=== PATIENT | male | born 1975 | race Caucasian/White ===

== ENCOUNTER → 2018-02-04 07:57 | Outpatient (CLI) | payer OTHER, SELFPAY ==
--- NOTE | 2018-02-04 08:01 | ECHOD_ITS ---
Reason For Study: [email or web address].FLUTTER Procedure This was a 2D Doppler, Color Flow transthoracic echocardiogram. The exam was of adequate technical quality. Exam performed in department. Left Ventricle Normal LV size. Mild global left ventricular systolic dysfunction. The estimated ejection fraction is 45 %. Normal diastology for age. Right Ventricle Normal RV size. Normal systolic function. Atria Normal left atrium. Normal right atrium. No doppler evidence for ASD. Mitral Valve There is no mitral annular calcification. Normal mitral valve. Trivial mitral valve insufficiency. Tricuspid Valve Normal tricuspid valve. Trivial tricuspid valve insufficiency. Right ventricular systolic pressure estimated to be 25 mmHg. Aortic Valve Trisinus/trileaflet aortic valve. Mild diffuse aortic valve thickening. Mild focal aortic valve calcification. Aortic sclerosis, no stenosis. Pulmonic Valve The pulmonic valve is not well visualized. Great Vessels Normal sized aortic root. Pericardium/Pleural No pericardial effusion. MMode/2D Measurements & Calculations LVIDd: 5.0 cm IVSd: 0.95 cm Ao root diam: 3.0 cm LVIDs: 3.4 cm LVPWd: 0.90 cm LA dimension: 3.2 cm RVDd: 3.3 cm FS: 31.1 % LAV(MOD-bp): 37.0 ml LA A4 area: 15.0 cm2 RA A4 area: 16.0 cm2 LAV(MOD-bp) Indexed: 17.3 ml/m2 LAV(MOD-sp2): 36.6 ml LAV(MOD-sp4): 38.0 ml Doppler Measurements & Calculations MV E max rd: 56.5 cm/sec Lat Peak E' Rd: 13.4 cm/sec Med Peak E' Rd: 13.6 cm/sec MV A max rd: 42.9 cm/sec E/E' lat: 4.2 E/E' med: 4.1 MV E/A: 1.3 Ao V2 max: 110.5 cm/sec LV V1 max: 92.8 cm/sec PA V2 max: 99.2 cm/sec Ao max P.9 mmHg LV V1 max P.[address] max rd: 235.2 cm/sec TR max P.3 mmHg Interpretation Summary Mild global left ventricular systolic dysfunction. The estimated ejection fraction is 45 %. Trivial mitral valve insufficiency. Trivial tricuspid valve insufficiency. Aortic sclerosis, no stenosis. Right ventricular systolic pressure estimated to be 25 mmHg. Normal diastology for age. Ordering Physician: Vince Shelton Referring Physician: Edilberto Beatty Performed By: Katina Hudson, OMARI, RVT
== END ==
PROVIDERS: Family Provider Physician Assistant; PCP Physician Assistant; Visit Provider Internal Medicine Cardiovascular Disease
DX: I48.0 Paroxysmal atrial fibrillation (principal); I42.8 Other cardiomyopathies
CPT/HCPCS: 93306

== ENCOUNTER → 2019-09-08 08:52 | Outpatient (CLI) | payer OTHER, SELFPAY ==
[2019-08-10 10:25] VITALS: BMI 25.3
--- NOTE | 2019-09-08 08:53 | ECHOD_ITS ---
Reason For Study: AFIB Procedure This was a 2D Doppler, Color Flow transthoracic echocardiogram. The exam was of adequate technical quality. Exam performed in department. Left Ventricle Normal LV size. Left ventricular systolic function is lower limits of normal. The estimated ejection fraction is 50 %. No evidence for diastolic dysfunction. No regional wall motion abnormalities noted. Right Ventricle Normal RV size. Normal systolic function. Atria Normal left atrium. Normal right atrium. No doppler evidence for ASD. Mitral Valve There is no mitral annular calcification. Mild diffuse mitral valve thickening. Trivial mitral valve insufficiency. Tricuspid Valve Normal tricuspid valve. Trivial tricuspid valve insufficiency. Right ventricular systolic pressure estimated to be 25 mmHg. Aortic Valve Trisinus/trileaflet aortic valve. Mild diffuse aortic valve thickening. Pulmonic Valve The pulmonic valve is not well visualized. Great Vessels Normal sized aortic root. Pericardium/Pleural No pericardial effusion. MMode/2D Measurements & Calculations LVIDd: 5.0 cm IVSd: 0.90 cm Ao root diam: 2.6 cm LVIDs: 3.7 cm LVPWd: 0.88 cm RVDd: 3.5 cm FS: 26.4 % LAV(MOD-bp): 46.5 ml LA A4 area: 17.4 cm2 LA dimension(2D): 3.3 cm LAV(MOD-bp) Indexed: 21.9 ml/m2 LAV(MOD-sp2): 41.2 ml LAV(MOD-sp4): 52.0 ml RA A4 area: 15.8 cm2 Time Measurements MV dec time: 0.37 sec Doppler Measurements & Calculations MV E max franco: 61.2 cm/sec Ao V2 max: 110.0 cm/sec LV V1 max: 86.2 cm/sec MV A max franco: 56.7 cm/sec Ao max P.8 mmHg LV V1 max P.0 mmHg MV E/A: 1.1 PA V2 max: 99.8 cm/sec TR max franco: 232.6 cm/sec TR max P.7 mmHg Interpretation Summary Left ventricular systolic function is lower limits of normal. The estimated ejection fraction is 50 %. Mild diffuse mitral valve thickening. Trivial mitral valve insufficiency. Trivial tricuspid valve insufficiency. Mild diffuse aortic valve thickening. Right ventricular systolic pressure estimated to be 25 mmHg. No evidence for diastolic dysfunction. Ordering Physician: Vince Shelton Referring Physician: REGINE NAYAK Performed By: Vandana Patton, SANDICS, RVT
== END ==
PROVIDERS: PCP Physician Assistant; Referring Provider Internal Medicine Cardiovascular Disease; Visit Provider Internal Medicine Cardiovascular Disease
DX: I42.8 Other cardiomyopathies (principal); I48.0 Paroxysmal atrial fibrillation; R00.2 Palpitations
CPT/HCPCS: 93306

== ENCOUNTER → 2021-07-04 09:56 | Outpatient (CLI) | payer OTHER, SELFPAY ==
--- NOTE | 2021-07-04 10:01 | ECHOD_ITS ---
Reason For Study: CARDIOMYOPATHY Procedure This was a 2D Doppler, Color Flow transthoracic echocardiogram. The exam was of adequate technical quality. Exam performed in department. Left Ventricle Normal LV size. Left ventricular systolic function is lower limits of normal. The estimated ejection fraction is 50 %. No evidence for diastolic dysfunction. No regional wall motion abnormalities noted. Right Ventricle Normal RV size. Normal systolic function. Atria Normal left atrium. Normal right atrium. No doppler evidence for ASD. Mitral Valve There is no mitral annular calcification. Anterior leaflet diffuse mitral valve thickening. Trivial mitral valve insufficiency. Tricuspid Valve Normal tricuspid valve. Trivial tricuspid valve insufficiency. Right ventricular systolic pressure estimated to be 27 mmHg. Aortic Valve Trisinus/trileaflet aortic valve. Mild diffuse aortic valve thickening. Trivial aortic valve insufficiency. Pulmonic Valve The pulmonic valve is not well visualized. Great Vessels Normal sized aortic root. Pericardium/Pleural No pericardial effusion. MMode/2D Measurements & Calculations LVIDd: 5.5 cm IVSd: 0.72 cm Ao root diam: 2.6 cm LVIDs: 3.7 cm LVPWd: 0.74 cm RVDd: 3.6 cm FS: 33.0 % LAV(MOD-bp): 51.9 ml LVAd ap4: 32.2 cm2 LVAd ap2: 30.5 cm2 LAV(MOD-bp) Indexed: 23.6 ml/m2 LVLd ap4: 8.7 cm LVLd ap2: 9.0 cm LAV(MOD-sp2): 51.2 ml EDV(MOD-sp4): 102.0 ml EDV(MOD-sp2): 93.0 ml LAV(MOD-sp4): 52.7 ml EDV(sp4-el): 101.3 ml EDV(sp2-el): 88.0 ml LVAs ap4: 22.0 cm2 LVAs ap2: 20.4 cm2 LVLs ap4: 7.3 cm LVLs ap2: 7.6 cm ESV(MOD-sp4): 56.4 ml ESV(MOD-sp2): 46.9 ml ESV(sp4-el): 56.5 ml ESV(sp2-el): 46.3 ml EF(MOD-sp4): 44.7 % EF(MOD-sp2): 49.6 % EF(sp4-el): 44.3 % SV(MOD-sp4): 45.6 ml SV(MOD-sp2): 46.1 ml SV(sp4-el): 44.8 ml LA dimension(2D): 3.4 cm LA A4 area: 18.4 cm2 RA A4 area: 14.7 cm2 Doppler Measurements & Calculations MV E max rd: 70.6 cm/sec Lat Peak E' Rd: 10.7 cm/sec Med Peak E' Rd: 8.6 cm/sec MV A max rd: 56.7 cm/sec E/E' lat: 6.6 E/E' med: 8.2 MV E/A: 1.2 Ao V2 max: 114.4 cm/sec LV V1 max: 92.6 cm/sec PA V2 max: 111.5 cm/sec Ao max P.2 mmHg LV V1 max P.[address] max rd: 243.7 cm/sec TR max P.8 mmHg ECHO/Echo Complete Interpretation Summary Left ventricular systolic function is lower limits of normal. The estimated ejection fraction is 50 %. Anterior leaflet diffuse mitral valve thickening. Trivial mitral valve insufficiency. Trivial tricuspid valve insufficiency. Mild diffuse aortic valve thickening. Trivial aortic valve insufficiency. Right ventricular systolic pressure estimated to be 27 mmHg. No evidence for diastolic dysfunction. Ordering Physician: Vince Shelton Referring Physician: REGINE NAYAK Performed By: Vandana Patton, OMARI, RVT
== END ==
PROVIDERS: PCP Physician Assistant; Referring Provider Internal Medicine Cardiovascular Disease; Visit Provider Internal Medicine Cardiovascular Disease
DX: R00.2 Palpitations (principal); I43 Cardiomyopathy in diseases classified elsewhere; I48.0 Paroxysmal atrial fibrillation
CPT/HCPCS: 93306

== ENCOUNTER 2021-08-29 09:18 | Outpatient (CLI) | payer OTHER, SELFPAY ==
--- NOTE | 2021-08-29 09:30 | RAD_ITS ---
STUDY: X-RAY CHEST REASON FOR EXAM: Male, 45 years old. SOB, orthopnea TECHNIQUE: PA and 2 lateral views of the chest. COMPARISON: 12/30/2011 FINDINGS: The lungs are clear and expanded. There is no demonstrated pleural abnormality. Normal size heart. Normal mediastinum and vikki. Normal visualized pulmonary arteries. Normal visualized aortic arch and descending thoracic aorta. Normal visualized thoracic spine. Normal visualized ribs, clavicles, and shoulders. There is no demonstrated abnormality of the visualized soft tissue structures of the upper abdomen. RAD/Chest PA and Lateral IMPRESSION: Normal x-ray examination of the chest. Electronically Signed: Owen Nolen MD at 17:46 EST ,
[2021-08-29 11:47] LABS: BNP,B-Type NATRIURETIC PEPTIDE 18.6 pg/mL (0-100)
== END 2021-08-29 23:59 | disposition home or self-care (01) ==
PROVIDERS: Nurse Practitioner Family; PCP Physician Assistant; Referring Provider Internal Medicine Cardiovascular Disease; Visit Provider Internal Medicine Cardiovascular Disease
DX: R06.01 Orthopnea (principal); I42.8 Other cardiomyopathies; R06.02 Shortness of breath
CPT/HCPCS: 36415; 71046; 83880